=== PATIENT | female | born 1965 | race Caucasian/White ===

== ENCOUNTER 2024-01-19 21:55 | Outpatient (REF) | payer OTHER, SELFPAY ==
[2024-01-25 19:07] LABS: Age Gdln ACOG Testing Note (.); HPV Aptima Negative (Negative); IGP, Aptima HPV, rfx 16/18,45 Note (.)
== END 2024-01-19 21:56 | disposition home or self-care (01) ==
LOC: LAB 21:55
PROVIDERS: Visit Provider Obstetrics & Gynecology
DX: Z01.419 Encounter for gynecological examination (general) (routine) without abnormal findings (principal)
CPT/HCPCS: 87624; G0145